=== PATIENT | male | born 1955 | race Caucasian/White ===

== ENCOUNTER 2016-10-10 01:32 | Day surgery (SDC) | payer OTHER ==
[~2016-10-10] VITALS: Ht 180.3 cm; Wt 148.7 kg
[2016-10-10] VITALS (16 sets, daily range): BP systolic 116–144; BP diastolic 54–79; PULSE 69–91; RESP 9–21; O2SAT 94–100
[~2016-10-10 01:32] MED LIST: ASPI-351 PO; CITA40TA PO; CLOP75TA14 PO; FISH1CAP16 PO; INS7030U SUBQ; INSU100I12 SQ; LISI40TA13 PO; METF1000 PO; METO50TA3 PO; NITR0.4T SL; OMEP20TA86 PO; PRA20 PO; [UNRECOGNIZED DRUG - CODE] PO
[2016-10-10] MEDS ORDERED: 0.9% Sodium Chloride 1,000 ML IV ONE (07:22)
[2016-10-10] MEDS ORDERED: ISOS60TA2 PO (07:26)
[2016-10-10] MEDS ORDERED: ATOR80TA PO (07:26)
[2016-10-10] MEDS ORDERED: novalog SQ (07:26)
[2016-10-10] MEDS ORDERED: ASPI325T32 PO (07:26)
[2016-10-10] MEDS ORDERED: CITA40TA13 PO (07:26)
[2016-10-10] MEDS ORDERED: CLOP75TA28 PO (07:26)
[2016-10-10] MEDS ORDERED: NITR0.4T SL (07:26)
[2016-10-10] MEDS ORDERED: LISI10TA PO (07:26)
[2016-10-10] MEDS ORDERED: PANT20TA2 PO (07:27)
--- NOTE | 2016-10-10 08:00 | NUR ---
ADMISSION NOTE MALE PT ADMITTED FOR HEART CATH. DISCUSSED PLAN OF CARE WITH PT AND . SEE ADMIT AND FLOW SHEET
[2016-10-10 09:02] LABS: INR 1.08 ratio
[2016-10-10] MEDS ORDERED: Heparin 1,000 Unit/mL 10 mL Inj ONE ×4 (09:18→11:21)
[2016-10-10] MEDS ORDERED: 0.9% Sodium Chloride 1,000 ML ONE ×3 (09:18→11:21)
[2016-10-10] MEDS ORDERED: Heparin 1,000 Units/500 mL NS Premix IV ONE (09:18)
[2016-10-10] MEDS ORDERED: diphenhydrAMINE 25 mg Capsule PO ONE (09:22)
[2016-10-10] MEDS ORDERED: Nitroglycerin 50,000 mcg/250 mL D5W Premix IV ONE (09:30)
[2016-10-10] MEDS ORDERED: Verapamil 2.5 mg/mL 2 mL Inj ONE (09:31)
[2016-10-10] MEDS ORDERED: fentaNYL-PF 50 mCg/mL 2 mL Inj ONE ×3 (09:43→11:16)
[2016-10-10] MEDS ORDERED: Atropine 1 mg/10 mL (Code) Syringe ONE (10:35)
--- NOTE | 2016-10-10 13:03 | DI95 ---
[address] [address] INTERVENTIONAL CARDIAC CATHETERIZATION PATIENT: CARROLL SANDY : 1955 MR#: [id number] ADMIT: 10/10/2016 JOB ID: [id number] PROCEDURE: 1. Selective right and left coronary angiography. 2. Left heart catheterization. 3. Plain old balloon angioplasty of the right coronary artery. 4. Attempted stenting of the right coronary artery. PROCEDURAL DETAILS: The reader is referred to the procedure log for complete details, as are the coders. This procedure was done via right radial approach. We initially started with a 5-Swazi system for diagnostics. This was subsequently up-sized to a 6-Swazi and then finally 7-Swazi. Note for coders to use appropriate modifiers for this complex case. ANGIOGRAPHIC FINDINGS: 1. Mild calcification and prior stents are noted in the LAD, as well as the circumflex. 2. Left main: No significant disease. 3. LAD is a large to moderate caliber vessel. It has stents in its mid segment. These stents are patent. There is about 30% to 40% in-stent restenoses. Overall good long-term result from stenting. The first major diagonal in its mid segment has a 60% lesion. It is a moderate caliber vessel of about 2-1/2 mm. 4. The circumflex is a nondominant vessel, essentially a single moderate to large sized obtuse marginal branch. It is subtotally occluded at its ostium. Evidence of stenting is noted in the proximal and mid circumflex. This vessel fills faintly via intracoronary collaterals. 5. The right coronary artery is a large caliber, dominant vessel. In its mid to proximal 1/3 there is a tubular stenosis of about 50% to 60%. Further downstream, in the mid segment, there is a long tubular 90% lesion. The posterolateral branches are free of any significant disease. The previously paced placed stent in the posterolateral appears to be patent. The PDA is a small to moderate caliber vessel. It has a tight 90% lesion in its mid segment. 6. Left heart catheterization revealed an LVEDP of 15. There was no gradient upon pullback. INTERVENTIONAL REPORT: We then proceeded with an intervention using a 6-Swazi AL1 guide. A BMW wire was placed in the distal RCA. Balloon angioplasty was then done with a 2.0 balloon in the mid and distal segments. Following that we tried to deliver a stent; however, the stent would not go. In view of this a balanced heavy-weight wire was used as a alexys wire and we even used a GuideLiner; however, despite this, the stent would not track. In fact, the entire system prolapsed out. At that point we decided to up-size to 7-Swazi. A 6/7 slender sheath was used. A seven-Swazi right coronary catheter was initially used, and then we switched to a multipurpose. Both of these catheters did not really fit well in the RCA. They prolapsed with every deep breath that the patient took. Unfortunately, we did not have any AL1 or AL2 guides and in view of that the procedure had to be terminated. The patient shall be brought back on Friday. We will at point and, depending upon the contrast constraints, make an attempt at fixing this circumflex as well. The circumflex, however, because of its in-stent restenoses and ostial location is going to be extremely challenging especially since it comes off at an acute angle.
--- NOTE | 2016-10-10 16:00 | NUR ---
TRANSFER NOTE TRANSFERED TO [facility]. ROOM 2008. REPORT GIVEN
--- NOTE | 2016-10-10 17:01 | NUR ---
Admit to PCC Pt admitted to PCC from [facility] at 16:00. Report received from ADRIANO Mckinney. Vitals taken and pt oriented to floor. Pt ambulated to BR with no complaints of dizziness or lightheadedness. Pt denies pain or discomfort. Cardiac:Pt denies CP. Tele: SR 90s Resp: Pt denies SOB at rest, SPo2 mid 90s on RA. GI/: Pt denies n/v/d Neuro: A&Ox3, REZA, pt has strong steady gait, denies dizziness when ambulating, independent in room.
[2016-10-10] MEDS ORDERED: Isosorbide Mononitrate 30 mg ER24 Tablet PO SCH (19:45)
[2016-10-10] MEDS ORDERED: 0.9% Sodium Chloride 250 ML BOLUS IV PRN (19:55)
[2016-10-10] MEDS ORDERED: Ondansetron 2 mg/mL 2 mL Inj IVPUSH PRN (19:55)
[2016-10-10] MEDS ORDERED: 0.9% Sodium Chloride 400 ML (4 HRS) IV ONE (19:55)
[2016-10-10] MEDS ORDERED: Sodium Chloride LOK Flush 10 mL Syringe IVFLUSH PRN (19:55)
[2016-10-10] MEDS ORDERED: Atropine 1 mg/10 mL (Code) Syringe IVPUSH PRN (19:55)
[2016-10-10] MEDS ORDERED: Insulin LISPRO 300 Unit/3 mL Inj SUBQ ONE (21:30)
[2016-10-10] MEDS ORDERED: Insulin Human NPH-Reg 70-30 100 Unit/mL 3 mL Pen SUBQ ONE (21:30)
[2016-10-11] VITALS (7 sets, daily range): BP systolic 103–128; BP diastolic 45–68; PULSE 69–79; RESP 16–20; O2SAT 94–97
--- NOTE | 2016-10-11 04:45 | NUR ---
Note Pt denies any chest pain/discomfort. Alert and oriented x3. REZA. Ambulate in room without any c/o. Telemetry SR in 80s with pvcs. Right wrist band aid cdi. No bleeding noted/reported.
[2016-10-11] MEDS ORDERED: Pantoprazole 20 mg ER24 Tablet PO SCH (06:30)
[2016-10-11] MEDS ORDERED: Isosorbide Mononitrate 30 mg ER24 Tablet PO SCH (07:30)
[2016-10-11] MEDS: Insulin LISPRO 300 Unit/3 mL Inj SUBQ SCH ×2 (07:30→11:17)
[2016-10-11] MEDS ORDERED: Insulin Human NPH-Reg 70-30 100 Unit/mL 3 mL Pen SUBQ SCH (08:00)
--- NOTE | 2016-10-11 14:45 | NUR ---
Discharge Discharge instructions reviewed at bedside, pt verbalizes understanding of. Vital signs stable. Denies pain. Pt transported to private vehicle via wheelchair.
== END 2016-10-11 15:02 | disposition home or self-care (01) ==
LOC: SOUO 01:32 → PCC 15:57 → SOUO 10-11 15:02
PROVIDERS: ATTEND Internal Medicine Cardiovascular Disease
DX: I25.118 Atherosclerotic heart disease of native coronary artery with other forms of angina pectoris (principal); Z53.8 Procedure and treatment not carried out for other reasons; T82.855A Stenosis of coronary artery stent, initial encounter; I10 Essential (primary) hypertension; E11.319 Type 2 diabetes mellitus with unspecified diabetic retinopathy without macular edema; I25.2 Old myocardial infarction; E78.00 Pure hypercholesterolemia, unspecified; Z79.82 Long term (current) use of aspirin; Z79.02 Long term (current) use of antithrombotics/antiplatelets; Z79.4 Long term (current) use of insulin; Z79.84 Long term (current) use of oral hypoglycemic drugs; Z87.891 Personal history of nicotine dependence; Z95.5 Presence of coronary angioplasty implant and graft; Y84.8 Other medical procedures as the cause of abnormal reaction of the patient, or of later complication, without mention of misadventure at the time of the procedure
CPT/HCPCS: 36415; 80048; 85610; 93005; 93458; 99152; 99153; C1725; C1769; C1887; C1894; C9600; J1644; J1815; J2250; J3010; J7030; Q9967

== ENCOUNTER → 2016-10-14 | Day surgery (SDC) | payer OTHER ==
[~2016-10-14] VITALS: Ht 180.3 cm; Wt 147.0 kg
[2016-10-14] VITALS (16 sets, daily range): BP systolic 97–120; BP diastolic 45–81; PULSE 63–77; RESP 12–15; O2SAT 91–97
[~2016-10-14] MED LIST changes: +0.9% Sodium Chloride 1,000 ML IV ONE; +0.9% Sodium Chloride 250 ML BOLUS IV PRN; +0.9% Sodium Chloride 400 ML (4 HRS) IV ONE; -ASPI-351 PO; +ASPI325T32 PO; +ATOR80TA PO; +Atropine 1 mg/10 mL (Code) Syringe IVPUSH PRN; -CITA40TA PO; +CITA40TA13 PO; -CLOP75TA14 PO; +CLOP75TA28 PO; -FISH1CAP16 PO; +Heparin 1,000 Unit/mL 10 mL Inj ONE; +Heparin 1,000 Units/500 mL NS Premix IV ONE; -INSU100I12 SQ; +ISOS60TA2 PO; +LISI10TA PO; -LISI40TA13 PO; +Nitroglycerin 50,000 mcg/250 mL D5W Premix IV ONE; -OMEP20TA86 PO; +Ondansetron 2 mg/mL 2 mL Inj IVPUSH PRN; +PANT20TA2 PO; -PRA20 PO; +Sodium Chloride LOK Flush 10 mL Syringe IVFLUSH PRN; -[UNRECOGNIZED DRUG - CODE] PO; +fentaNYL-PF 50 mCg/mL 2 mL Inj ONE; +novalog SQ
--- NOTE | 2016-10-14 09:00 | NUR ---
ADMISSION NOTE MALE PT ADMITTED FOR ANGIOPLASTY. WAS HERE LAST FRIDAY SEE ADMIT AND FLOW SHEET
[2016-10-14 09:35] LABS: BASOPHILS % (AUTO) 0.2 % (0-3); EOSINOPHILS % (AUTO) 3.8 % (0-5); Mean Corpuscular Hemoglobin 31.3 pg (27.0-35.0); NEUTROPHILS % (AUTO) 65.4 % (40-74); Platelet Count 238 bil/L (150-400)
[2016-10-14 09:59] LABS: INR 1.11 ratio
--- NOTE | 2016-10-14 15:57 | NUR ---
MEAGAN ASSUMED CARE OF PT AT 1200 UPON RETURN FROM [employer]. RIGHT GROIN WITH PERCLOSE HAS REMAINED SOFT, NON TENDER, NO BLEEDING OR HEMATOMA NOTED. RIGHT DP 2+. PT IS SLEEPING OFF AND ON, ABLE TO TOLERATE PO FLUIDS AND MEAL. HE COMPLETED BEDREST AND AMBULATED IN [place] AND USED THE BR. DRSG CHANGED TO RIGHT GROIN AND IT CONTINUES TO BE STABLE. PT QUALIFIES FOR SAME DAY PCI DISCHARGE. NS AT 100ML/HR AND CONTINUE TO MONITOR UNTIL 1800. ANTICIPATE DR MICHAEL PRIOR TO DISCHARGE AND WILL GET EKG ALSO PRIOR TO DISCHARGE.
--- NOTE | 2016-10-14 18:03 | NUR ---
DISCHARGE DR MICHAEL WAS HERE AND SAW PT PRIOR TO DISCHARGE. F/U SCHEDULED FOR [address] REGAN, OFFICE WILL CALL PT WITH DATE AND TIME. EKG ALSO OBTAINED PRIOR TO DISCHARGE. RIGHT GROIN HAS REMAINED SOFT, NON TENDER, WITH NO BLEEDING NOTED. PT HAS VOIDED X2 PER BR. DISCHARGE INSTRUCTIONS INCLUDING F/U LAB WORK, MEDICATIONS, AND F/U WERE EXPLAINED TO PT AND AND THEY VERBALIZED UNDERSTANDING. HE KNOWS TO EXPECT A PHONE CALL FROM [facility] TOMORROW AND OUR NUMBER WAS ALSO GIVEN TO HIM. HE WAS DISCHARGED WITH IN STABLE CONDITION AT 1800.
--- NOTE | 2016-10-14 18:31 | DI95 ---
[address] [address] INTERVENTIONAL CARDIAC CATHETERIZATION PATIENT: CARROLL SANDY : 1955 MR#: [id number] ADMIT: 10/14/2016 JOB ID: [id number] PROCEDURE: Percutaneous intervention on the RCA. HISTORICAL DETAILS: This gentleman had a diagnostic angiogram to the right radial artery. He was found to have disease in the RCA. We tried fixing it but because of lack of Amplatz-type catheters, we did not have adequate support so he was brought back for an intervention via the groin using AL2 catheter. Rest of the procedural details are enumerated in the procedure log to which the reader and the coders are referred. INTERVENTIONAL REPORT: An 7-Australian AL2 guide was used to cannulate the right coronary artery. This procedure was done via right femoral approach. A Runthrough wire was placed in the distal RCA and a [place] wire was used as a alexys wire. A 2.0 balloon was used to predilate the distal RCA lesion which was then stented with a 3.5 x 18 mm Xience drug-coated stent and the mid RCA lesion was also treated with a similar stent. Both stents were deployed at 18 atmospheres. Final angiographic results in the RCA were excellent. In summary, successful intervention of the right coronary artery with 90% to zero percent resultant distally and 60 to zero proximally.
== END | disposition home or self-care (01) ==
LOC: SOUO 00:17
PROVIDERS: ATTEND Internal Medicine Cardiovascular Disease
DX: I25.118 Atherosclerotic heart disease of native coronary artery with other forms of angina pectoris (principal); I10 Essential (primary) hypertension; Z87.891 Personal history of nicotine dependence; E11.9 Type 2 diabetes mellitus without complications; E78.5 Hyperlipidemia, unspecified; E78.00 Pure hypercholesterolemia, unspecified; G47.30 Sleep apnea, unspecified; I25.2 Old myocardial infarction; E66.9 Obesity, unspecified; Z79.82 Long term (current) use of aspirin; Z79.4 Long term (current) use of insulin; Z79.84 Long term (current) use of oral hypoglycemic drugs; Z95.5 Presence of coronary angioplasty implant and graft; Z68.42 Body mass index [BMI] 45.0-49.9, adult
CPT/HCPCS: 36415; 80048; 85025; 85610; 93005; 99152; 99153; C1725; C1760; C1769; C1874; C1887; C9600; J1644; J2250; J3010; J7030